=== PATIENT | male | born 1970 | race Caucasian/White ===

== ENCOUNTER 2016-11-02 09:32 | Inpatient (IN) | payer MEDICAID, OTHER ==
[~2016-11-02] VITALS: Ht 172.7 cm; Wt 101.8 kg
[2016-11-02 11:25] LABS: HEMATOCRIT 38.2 % (39.2-51.8); HEMOGLOBIN 12.6 g/dL (13.7-18.0); WHITE BLOOD COUNT 10.4 x10^3/uL (3.4-10)
[2016-11-02 11:31] LABS: ASPARTATE AMINO TRANSFERASE 28 U/L (15-37); BLOOD UREA NITROGEN 57 mg/dL (7-18)
[2016-11-02] MEDS ORDERED: ENALAPRILAT 1.25 MG/ML, 2ML IV ONE (12:00)
[2016-11-02] MEDS ORDERED: AMLODIPINE 5 MG TABLET PO ONE (12:00)
[2016-11-02] MEDS ORDERED: ENALAPRILAT 1.25 MG/ML, 2ML ONE (12:29)
[2016-11-02] MEDS ORDERED: LOVA40TA2 PO (15:16)
[2016-11-02] MEDS ORDERED: TRAZ50TA18 PO (15:17)
[2016-11-02] MEDS ORDERED: ERGO2000 PO (15:20)
[2016-11-02] MEDS ORDERED: OMEP-110 PO (15:20)
[2016-11-02] MEDS ORDERED: LISI-170 PO (15:22)
[2016-11-02] MEDS ORDERED: CALC0.25 PO (15:24)
[2016-11-02] MEDS ORDERED: AMLO10TA2 PO (15:24)
[2016-11-02] MEDS ORDERED: ASPI-496 PO (15:24)
[2016-11-02] MEDS ORDERED: CARV3.122 PO (15:25)
[2016-11-02] MEDS ORDERED: SEVE800T7 PO (15:28)
[2016-11-02] MEDS ORDERED: hydrALAzine 20 MG/ML, 1ML IVPush PRN (15:30)
[2016-11-02] MEDS ORDERED: morphine SULFATE 10 MG/ML, 1ML IVPush PRN ×2 (15:30→20:00)
[2016-11-02] MEDS ORDERED: ONDANSETRON 2MG/ML, 2ML IVPush PRN ×2 (15:30→20:00)
[2016-11-02] MEDS ORDERED: ACETAMINOPHEN 325 MG TABLET PO PRN (15:30)
[2016-11-02 15:39] VITALS: BP 147/84
[2016-11-02] MEDS: HEPARIN 5,000 UNITS/ML, 1ML SQ SCH (17:28)
[2016-11-02] MEDS: SEVELAMER 800MG TABLET PO SCH (17:28)
[2016-11-02] MEDS: NICOTINE 21 MG/24 HR PATCH.TD24 TD SCH (17:31)
[2016-11-02 18:57] VITALS: BP 144/79
[2016-11-02] MEDS: LISINOPRIL 20 MG TABLET PO SCH (20:09)
[2016-11-02] MEDS: OMEPRAZOLE 20 MG CAPSULE.DR PO SCH (20:09)
[2016-11-02] MEDS: CARVEDILOL 3.125 MG TABLET PO SCH (20:10)
[2016-11-02] MEDS: ASPIRIN 81 MG TABLET EC PO SCH (20:10)
[2016-11-02] MEDS: LOVASTATIN 40 MG TABLET PO SCH (20:10)
[2016-11-02] MEDS: TRAZODONE 50MG TABLET PO SCH (20:10)
[2016-11-02] MEDS ORDERED: SIMVASTATIN 40 MG TABLET PO SCH (21:00)
[2016-11-02] MEDS ORDERED: ATORVASTATIN 20 MG TABLET PO SCH (21:00)
[2016-11-02] MEDS ORDERED: LISINOPRIL 20 MG TABLET PO SCH (21:00)
[2016-11-03] MEDS: HEPARIN 5,000 UNITS/ML, 1ML SQ SCH ×3 (01:03→17:10)
[2016-11-03 01:36] VITALS: BP 139/80
[2016-11-03 05:08] LABS: HEMATOCRIT 35.5 % (39.2-51.8); HEMOGLOBIN 11.7 g/dL (13.7-18.0); WHITE BLOOD COUNT 9.5 x10^3/uL (3.4-10)
[2016-11-03 05:21] LABS: BLOOD UREA NITROGEN 67 mg/dL (7-18)
[2016-11-03 05:27] LABS: ASPARTATE AMINO TRANSFERASE 19 U/L (15-37); FERRITIN 201.1 ng/mL (26-388); TOTAL IRON BINDING CAPACITY 235 mcg/dL (250-450)
[2016-11-03] MEDS ORDERED: ASPIRIN 81 MG TABLET EC PO SCH (06:00)
[2016-11-03] MEDS ORDERED: METOPROLOL SUCCINATE 25 MG TAB.ER.24H PO SCH (06:00)
[2016-11-03 07:19] VITALS: BP 143/91
[2016-11-03] MEDS: OMEPRAZOLE 20 MG CAPSULE.DR PO SCH ×2 (08:38→22:13)
[2016-11-03] MEDS: CALCITRIOL 0.25 MCG CAPSULE PO SCH (08:38)
[2016-11-03] MEDS: SEVELAMER 800MG TABLET PO SCH ×3 (08:38→17:09)
[2016-11-03] MEDS: LISINOPRIL 20 MG TABLET PO SCH ×2 (08:38→21:13)
[2016-11-03] MEDS: CHOLECALCIFEROL 1,000 UNIT TABLET PO SCH (08:38)
[2016-11-03] MEDS: AMLODIPINE 5 MG TABLET PO SCH (08:39)
[2016-11-03] MEDS: ASPIRIN 81 MG TABLET EC PO SCH ×2 (08:39→21:13)
[2016-11-03] MEDS: CARVEDILOL 3.125 MG TABLET PO SCH ×2 (08:39→21:13)
[2016-11-03] MEDS ORDERED: AMLODIPINE 5 MG TABLET PO SCH (09:00)
[2016-11-03] MEDS: FERROUS SULFATE 325 MG TABLET PO SCH ×2 (12:00→17:09)
[2016-11-03 14:00] VITALS: BP 157/71
[2016-11-03] MEDS: NICOTINE 21 MG/24 HR PATCH.TD24 TD SCH (17:10)
[2016-11-03 20:00] VITALS: BP 149/85
[2016-11-03] MEDS: TRAZODONE 50MG TABLET PO SCH (21:13)
[2016-11-03] MEDS: LOVASTATIN 40 MG TABLET PO SCH (21:13)
[2016-11-04] MEDS: HEPARIN 5,000 UNITS/ML, 1ML SQ SCH ×3 (01:35→16:29)
[2016-11-04 02:00] VITALS: BP 138/84
[2016-11-04 05:11] LABS: HEMATOCRIT 38.2 % (39.2-51.8); HEMOGLOBIN 12.6 g/dL (13.7-18.0); WHITE BLOOD COUNT 8.4 x10^3/uL (3.4-10)
[2016-11-04 05:29] LABS: BLOOD UREA NITROGEN 45 mg/dL (7-18)
[2016-11-04 06:48] VITALS: BP 146/84
[2016-11-04] MEDS: OMEPRAZOLE 20 MG CAPSULE.DR PO SCH ×2 (08:13→20:16)
[2016-11-04] MEDS: CHOLECALCIFEROL 1,000 UNIT TABLET PO SCH (08:13)
[2016-11-04] MEDS: AMLODIPINE 5 MG TABLET PO SCH (08:13)
[2016-11-04] MEDS: LISINOPRIL 20 MG TABLET PO SCH ×2 (08:13→20:16)
[2016-11-04] MEDS: FERROUS SULFATE 325 MG TABLET PO SCH ×2 (08:14→16:29)
[2016-11-04] MEDS: CARVEDILOL 3.125 MG TABLET PO SCH ×2 (08:14→20:17)
[2016-11-04] MEDS: ASPIRIN 81 MG TABLET EC PO SCH ×2 (08:14→20:16)
[2016-11-04] MEDS: SEVELAMER 800MG TABLET PO SCH ×3 (08:14→16:29)
[2016-11-04] MEDS: CALCITRIOL 0.25 MCG CAPSULE PO SCH (08:14)
[2016-11-04 12:38] VITALS: BP 139/83
[2016-11-04] MEDS: NICOTINE 21 MG/24 HR PATCH.TD24 TD SCH (16:29)
[2016-11-04 20:00] VITALS: BP 143/88
[2016-11-04] MEDS: TRAZODONE 50MG TABLET PO SCH (20:16)
[2016-11-04] MEDS: LOVASTATIN 40 MG TABLET PO SCH (20:16)
[2016-11-05] MEDS: HEPARIN 5,000 UNITS/ML, 1ML SQ SCH ×3 (01:25→15:57)
[2016-11-05 02:00] VITALS: BP 147/90
[2016-11-05 05:27] LABS: HEMOGLOBIN 11.9 g/dL (13.7-18.0); WHITE BLOOD COUNT 7.8 x10^3/uL (3.4-10)
[2016-11-05 05:40] LABS: ASPARTATE AMINO TRANSFERASE 13 U/L (15-37); BLOOD UREA NITROGEN 62 mg/dL (7-18)
[2016-11-05 07:59] VITALS: BP 145/88
[2016-11-05] MEDS: OMEPRAZOLE 20 MG CAPSULE.DR PO SCH ×2 (08:27→20:56)
[2016-11-05] MEDS: CALCITRIOL 0.25 MCG CAPSULE PO SCH (08:28)
[2016-11-05] MEDS: CARVEDILOL 3.125 MG TABLET PO SCH ×2 (08:28→20:56)
[2016-11-05] MEDS: SEVELAMER 800MG TABLET PO SCH ×3 (08:28→15:57)
[2016-11-05] MEDS: FERROUS SULFATE 325 MG TABLET PO SCH ×2 (08:28→15:57)
[2016-11-05] MEDS: ASPIRIN 81 MG TABLET EC PO SCH ×2 (08:32→20:56)
[2016-11-05] MEDS: LISINOPRIL 20 MG TABLET PO SCH ×2 (09:00→20:56)
[2016-11-05] MEDS: CHOLECALCIFEROL 1,000 UNIT TABLET PO SCH (09:00)
[2016-11-05 14:16] VITALS: BP 160/114
[2016-11-05] MEDS: NICOTINE 21 MG/24 HR PATCH.TD24 TD SCH (15:57)
[2016-11-05] MEDS: AMLODIPINE 5 MG TABLET PO SCH (15:59)
[2016-11-05 20:00] VITALS: BP 150/93
[2016-11-05] MEDS: TRAZODONE 50MG TABLET PO SCH (20:56)
[2016-11-05] MEDS: LOVASTATIN 40 MG TABLET PO SCH (20:56)
[2016-11-06] MEDS: HEPARIN 5,000 UNITS/ML, 1ML SQ SCH ×3 (01:00→17:00)
[2016-11-06 02:00] VITALS: BP 130/79
[2016-11-06 06:08] LABS: HEMATOCRIT 38.1 % (39.2-51.8); HEMOGLOBIN 12.6 g/dL (13.7-18.0); WHITE BLOOD COUNT 9.1 x10^3/uL (3.4-10)
[2016-11-06 06:20] LABS: ASPARTATE AMINO TRANSFERASE 13 U/L (15-37); BLOOD UREA NITROGEN 56 mg/dL (7-18)
[2016-11-06] MEDS: FERROUS SULFATE 325 MG TABLET PO SCH ×2 (08:00→17:25)
[2016-11-06] MEDS: SEVELAMER 800MG TABLET PO SCH ×3 (08:00→17:25)
[2016-11-06 08:31] VITALS: BP 181/96
[2016-11-06] MEDS: CARVEDILOL 3.125 MG TABLET PO SCH (09:00)
[2016-11-06] MEDS: ASPIRIN 81 MG TABLET EC PO SCH (09:00)
[2016-11-06] MEDS: AMLODIPINE 5 MG TABLET PO SCH (09:00)
[2016-11-06] MEDS: OMEPRAZOLE 20 MG CAPSULE.DR PO SCH (09:00)
[2016-11-06] MEDS: LISINOPRIL 20 MG TABLET PO SCH (09:00)
[2016-11-06] MEDS: CALCITRIOL 0.25 MCG CAPSULE PO SCH (09:00)
[2016-11-06] MEDS: CHOLECALCIFEROL 1,000 UNIT TABLET PO SCH (09:00)
[2016-11-06] MEDS ORDERED: MIDAZOLAM 1 MG/ML, 2ML ONE (13:10)
[2016-11-06] MEDS ORDERED: FENTANYL PF 100 MCG/2ML ONE ×2 (13:11→15:13)
[2016-11-06] MEDS ORDERED: BUPIVACAINE/PF 0.5% ONE (13:40)
[2016-11-06] MEDS ORDERED: PROTAMINE SULFATE 10 MG/ML, 5ML ONE (13:40)
[2016-11-06] MEDS ORDERED: HEPARIN 1,000 UNITS/ML, 10ML ONE (13:40)
[2016-11-06] MEDS ORDERED: THROMBIN 5,000 UNIT VIAL TP ONE (13:40)
[2016-11-06] MEDS ORDERED: CEFAZOLIN 1,000 MG ONE (13:48)
[2016-11-06] MEDS ORDERED: ROCURONIUM 10 MG/ML ONE (13:48)
[2016-11-06] MEDS ORDERED: ONDANSETRON 2MG/ML, 2ML ONE ×2 (13:48→15:13)
[2016-11-06] MEDS ORDERED: SUCCINYLCHOLINE 20 MG/ML, 10ML ONE (13:48)
[2016-11-06] MEDS ORDERED: PROPOFOL 10 MG/ML, 20ML ONE (13:48)
[2016-11-06] MEDS ORDERED: OXYcodone 5 MG/5 ML ORAL.SOL UDC PO PRN (14:30)
[2016-11-06] MEDS ORDERED: HYDROmorphone 1 MG/ML, 1ML IV PRN (14:30)
[2016-11-06] MEDS ORDERED: ACETAMINOPHEN 325 MG TABLET PO PRN (14:30)
[2016-11-06] MEDS ORDERED: ONDANSETRON 2MG/ML, 2ML IVPush PRN (14:30)
[2016-11-06] MEDS ORDERED: LABETALOL 5MG/ML, 20ML IV PRN (14:30)
[2016-11-06] MEDS ORDERED: hydrALAzine 20 MG/ML, 1ML IV PRN (14:30)
[2016-11-06] MEDS ORDERED: ACETAMINOPHEN 650 MG/20.3 ML UDC ONE (15:13)
[2016-11-06] MEDS ORDERED: ACETAMINOPHEN 325 MG TABLET ONE (15:13)
[2016-11-06] MEDS: FENTANYL PF 100 MCG/2ML IV PRN ×2 (15:16→15:25)
[2016-11-06 15:43] VITALS: BP 136/82
[2016-11-06] MEDS: NICOTINE 21 MG/24 HR PATCH.TD24 TD SCH (17:00)
[2016-11-06 18:49] VITALS: BP 129/79
== END 2016-11-06 20:43 | disposition hospice, home (50) | DRG 673 ==
LOC: ED 10:59 → EDIP 11:48 → 4WST 13:26
PROVIDERS: ADMIT Internal Medicine; ATTEND Family Medicine
PROC: 5A1D60Z (ICD-10-PCS; principal; 2016-11-05)
PROC: 031C0ZF Bypass Left Radial Artery to Lower Arm Vein, Open Approach (ICD-10-PCS; 2016-11-06)
DX: I12.0 Hypertensive chronic kidney disease with stage 5 chronic kidney disease or end stage renal disease (principal); N18.6 End stage renal disease; N25.81 Secondary hyperparathyroidism of renal origin; E11.21 Type 2 diabetes mellitus with diabetic nephropathy; E83.39 Other disorders of phosphorus metabolism; E11.22 Type 2 diabetes mellitus with diabetic chronic kidney disease; I25.10 Atherosclerotic heart disease of native coronary artery without angina pectoris; E66.9 Obesity, unspecified; D63.1 Anemia in chronic kidney disease; K21.9 Gastro-esophageal reflux disease without esophagitis; E78.5 Hyperlipidemia, unspecified; Z99.2 Dependence on renal dialysis; Z95.1 Presence of aortocoronary bypass graft; Z87.891 Personal history of nicotine dependence; Z68.34 Body mass index [BMI] 34.0-34.9, adult
CPT/HCPCS: 36415; 80048; 80053; 80074; 82306; 82728; 83036; 83540; 83550; 83735; 83880; 83970; 84100; 84550; 85025; 86480; 93005; C8929; J0690; J1644; J2250; J2405; J2704; J2720; J3010; J3490; G0365; J0330

== ENCOUNTER 2016-11-06 22:45 | Inpatient (IN) | payer MEDICAID, OTHER ==
[~2016-11-06] VITALS: Ht 172.7 cm; Wt 101.5 kg
[~2016-11-06 22:45] MED LIST: AMLO10TA2 PO; ASPI-496 PO; CALC0.25 PO; CARV3.122 PO; ERGO2000 PO; LISI-170 PO; LOVA40TA2 PO; OMEP-110 PO; SEVE800T7 PO; TRAZ50TA18 PO
[2016-11-07] MEDS ORDERED: SODIUM CHLORIDE FLUSH 10ML SYR IVF PRN
[2016-11-07] MEDS ORDERED: POLYETHYLENE GLYCOL 17 GM PACKET PO PRN (01:00)
[2016-11-07] MEDS ORDERED: BISACODYL 10 MG SUPP PR PRN (01:00)
[2016-11-07] MEDS: SEVELAMER 800MG TABLET PO SCH ×4 (01:00→17:10)
[2016-11-07] MEDS ORDERED: ONDANSETRON 2MG/ML, 2ML IVPush PRN (01:00)
[2016-11-07 02:00] VITALS: BP 153/93
[2016-11-07] MEDS: LOVASTATIN 40 MG TABLET PO SCH ×2 (02:20→21:13)
[2016-11-07] MEDS: TRAZODONE 50MG TABLET PO SCH ×2 (02:20→21:13)
[2016-11-07] MEDS: HEPARIN 5,000 UNITS/ML, 1ML SQ SCH ×3 (02:20→17:11)
[2016-11-07 02:43] VITALS: BP 153/93
[2016-11-07 05:26] LABS: HEMATOCRIT 34.5 % (39.2-51.8); HEMOGLOBIN 11.5 g/dL (13.7-18.0); WHITE BLOOD COUNT 9.5 x10^3/uL (3.4-10)
[2016-11-07 06:23] LABS: ASPARTATE AMINO TRANSFERASE 14 U/L (15-37); BLOOD UREA NITROGEN 69 mg/dL (7-18)
[2016-11-07 06:35] VITALS: BP 138/84
[2016-11-07] MEDS: CHOLECALCIFEROL 1,000 UNIT TABLET PO SCH (08:51)
[2016-11-07] MEDS: CALCITRIOL 0.25 MCG CAPSULE PO SCH (08:51)
[2016-11-07] MEDS: AMLODIPINE 5 MG TABLET PO SCH (08:51)
[2016-11-07] MEDS: OMEPRAZOLE 20 MG CAPSULE.DR PO SCH ×2 (08:51→21:13)
[2016-11-07] MEDS: LISINOPRIL 20 MG TABLET PO SCH ×2 (08:51→21:13)
[2016-11-07] MEDS: SENNA/DOCUSATE TABLET PO SCH (08:51)
[2016-11-07] MEDS: CARVEDILOL 3.125 MG TABLET PO SCH ×2 (08:52→21:13)
[2016-11-07] MEDS: ASPIRIN 81 MG TABLET EC PO SCH ×2 (08:52→21:14)
[2016-11-07 14:38] VITALS: BP 156/90
[2016-11-07 20:50] VITALS: BP 142/74
[2016-11-07] MEDS ORDERED: OXYcodone/APAP 5/325MG TABLET PO PRN (21:00)
[2016-11-08] MEDS: HEPARIN 5,000 UNITS/ML, 1ML SQ SCH ×3 (00:50→17:19)
[2016-11-08 02:15] VITALS: BP 132/78
[2016-11-08 05:33] LABS: HEMATOCRIT 36.9 % (39.2-51.8); HEMOGLOBIN 12.2 g/dL (13.7-18.0)
[2016-11-08 05:42] LABS: BLOOD UREA NITROGEN 57 mg/dL (7-18)
[2016-11-08 05:46] LABS: ASPARTATE AMINO TRANSFERASE 15 U/L (15-37)
[2016-11-08 07:15] VITALS: BP 145/81
[2016-11-08] MEDS: OMEPRAZOLE 20 MG CAPSULE.DR PO SCH ×2 (08:35→21:15)
[2016-11-08] MEDS: CARVEDILOL 3.125 MG TABLET PO SCH ×2 (08:35→21:15)
[2016-11-08] MEDS: ASPIRIN 81 MG TABLET EC PO SCH ×2 (08:35→21:15)
[2016-11-08] MEDS: LISINOPRIL 20 MG TABLET PO SCH ×2 (08:35→21:15)
[2016-11-08] MEDS: AMLODIPINE 5 MG TABLET PO SCH (08:36)
[2016-11-08] MEDS: CHOLECALCIFEROL 1,000 UNIT TABLET PO SCH (08:36)
[2016-11-08] MEDS: SENNA/DOCUSATE TABLET PO SCH (08:36)
[2016-11-08] MEDS: SEVELAMER 800MG TABLET PO SCH ×3 (08:36→16:10)
[2016-11-08] MEDS: CALCITRIOL 0.25 MCG CAPSULE PO SCH (08:36)
[2016-11-08 09:07] LABS: HEP B SURF. AB < 3.1 mIU/mL (0.0-10.0)
[2016-11-08 13:03] VITALS: BP 149/80
[2016-11-08 18:45] VITALS: BP 140/79
[2016-11-08] MEDS: ACETAMINOPHEN 325 MG TABLET PO PRN (18:48)
[2016-11-08] MEDS: LOVASTATIN 40 MG TABLET PO SCH (21:15)
[2016-11-08] MEDS: TRAZODONE 50MG TABLET PO SCH (21:15)
[2016-11-08 21:17] VITALS: BP 148/85
[2016-11-09] MEDS: HEPARIN 5,000 UNITS/ML, 1ML SQ SCH ×3 (00:27→17:02)
[2016-11-09 02:10] VITALS: BP 154/90
[2016-11-09] MEDS: ACETAMINOPHEN 325 MG TABLET PO PRN ×2 (07:24→17:02)
[2016-11-09 07:56] VITALS: BP 154/99
[2016-11-09] MEDS: CALCITRIOL 0.25 MCG CAPSULE PO SCH (09:20)
[2016-11-09] MEDS: CARVEDILOL 3.125 MG TABLET PO SCH ×2 (09:20→20:18)
[2016-11-09] MEDS: SENNA/DOCUSATE TABLET PO SCH (09:20)
[2016-11-09] MEDS: OMEPRAZOLE 20 MG CAPSULE.DR PO SCH ×2 (09:20→20:18)
[2016-11-09] MEDS: CHOLECALCIFEROL 1,000 UNIT TABLET PO SCH (09:20)
[2016-11-09] MEDS: LISINOPRIL 20 MG TABLET PO SCH ×2 (09:20→20:18)
[2016-11-09] MEDS: AMLODIPINE 5 MG TABLET PO SCH (09:20)
[2016-11-09] MEDS: ASPIRIN 81 MG TABLET EC PO SCH ×2 (09:21→20:19)
[2016-11-09] MEDS: SEVELAMER 800MG TABLET PO SCH ×3 (09:21→17:02)
[2016-11-09 12:55] VITALS: BP 140/80
[2016-11-09 18:49] VITALS: BP 159/87
[2016-11-09] MEDS ORDERED: OXYcodone/APAP 5/325MG TABLET PO PRN ×2 (20:00→20:30)
[2016-11-09] MEDS ORDERED: BISACODYL 10 MG SUPP PR PRN (20:00)
[2016-11-09] MEDS ORDERED: ONDANSETRON 2MG/ML, 2ML IVPush PRN ×2 (20:00→20:30)
[2016-11-09] MEDS: LOVASTATIN 40 MG TABLET PO SCH (20:18)
[2016-11-09] MEDS: TRAZODONE 50MG TABLET PO SCH (20:19)
[2016-11-10 00:59] VITALS: BP 130/65
[2016-11-10] MEDS: HEPARIN 5,000 UNITS/ML, 1ML SQ SCH ×3 (01:00→17:20)
[2016-11-10] MEDS: ACETAMINOPHEN 325 MG TABLET PO PRN (04:54)
[2016-11-10 05:08] LABS: HEMATOCRIT 34.3 % (39.2-51.8); HEMOGLOBIN 11.4 g/dL (13.7-18.0); WHITE BLOOD COUNT 9.5 x10^3/uL (3.4-10)
[2016-11-10 05:21] LABS: BLOOD UREA NITROGEN 92 mg/dL (7-18)
[2016-11-10 05:26] LABS: ASPARTATE AMINO TRANSFERASE 14 U/L (15-37)
[2016-11-10] MEDS: OMEPRAZOLE 20 MG CAPSULE.DR PO SCH ×2 (07:40→21:42)
[2016-11-10] MEDS: CARVEDILOL 3.125 MG TABLET PO SCH ×2 (07:40→21:43)
[2016-11-10] MEDS: SEVELAMER 800MG TABLET PO SCH ×3 (07:40→17:21)
[2016-11-10] MEDS: CHOLECALCIFEROL 1,000 UNIT TABLET PO SCH (07:40)
[2016-11-10] MEDS: CALCITRIOL 0.25 MCG CAPSULE PO SCH (07:40)
[2016-11-10] MEDS: ASPIRIN 81 MG TABLET EC PO SCH ×2 (07:40→21:43)
[2016-11-10] MEDS: SENNA/DOCUSATE TABLET PO SCH (07:41)
[2016-11-10 07:45] VITALS: BP 136/86
[2016-11-10] MEDS: LISINOPRIL 20 MG TABLET PO SCH ×2 (07:47→21:42)
[2016-11-10] MEDS: AMLODIPINE 5 MG TABLET PO SCH (07:47)
[2016-11-10] MEDS ORDERED: SENNA/DOCUSATE TABLET PO SCH (09:00)
[2016-11-10 14:01] VITALS: BP 127/77
[2016-11-10 21:30] VITALS: BP 139/87
[2016-11-10] MEDS: LOVASTATIN 40 MG TABLET PO SCH (21:43)
[2016-11-10] MEDS: TRAZODONE 50MG TABLET PO SCH (21:43)
[2016-11-11] MEDS: ACETAMINOPHEN 325 MG TABLET PO PRN (00:02)
[2016-11-11] MEDS: HEPARIN 5,000 UNITS/ML, 1ML SQ SCH ×4 (01:00→21:00)
[2016-11-11 03:59] VITALS: BP 112/67
[2016-11-11 08:18] VITALS: BP 129/74
[2016-11-11] MEDS: CHOLECALCIFEROL 1,000 UNIT TABLET PO SCH (08:26)
[2016-11-11] MEDS: AMLODIPINE 5 MG TABLET PO SCH (08:26)
[2016-11-11] MEDS: SENNA/DOCUSATE TABLET PO SCH (08:26)
[2016-11-11] MEDS: OMEPRAZOLE 20 MG CAPSULE.DR PO SCH ×2 (08:26→21:05)
[2016-11-11] MEDS: LISINOPRIL 20 MG TABLET PO SCH ×2 (08:26→21:05)
[2016-11-11] MEDS: CALCITRIOL 0.25 MCG CAPSULE PO SCH (08:26)
[2016-11-11] MEDS: ASPIRIN 81 MG TABLET EC PO SCH ×2 (08:27→21:05)
[2016-11-11] MEDS: SEVELAMER 800MG TABLET PO SCH ×3 (08:27→15:14)
[2016-11-11] MEDS: CARVEDILOL 3.125 MG TABLET PO SCH ×2 (08:27→21:05)
[2016-11-11 14:23] VITALS: BP 125/75
[2016-11-11] MEDS: LOVASTATIN 40 MG TABLET PO SCH (21:04)
[2016-11-11] MEDS: TRAZODONE 50MG TABLET PO SCH (21:05)
[2016-11-11 21:14] VITALS: BP 135/84
[2016-11-12] MEDS: HEPARIN 5,000 UNITS/ML, 1ML SQ SCH (05:00)
[2016-11-12 08:15] VITALS: BP 133/74
[2016-11-12] MEDS: ASPIRIN 81 MG TABLET EC PO SCH (09:00)
[2016-11-12] MEDS: SENNA/DOCUSATE TABLET PO SCH (09:00)
[2016-11-12] MEDS: OMEPRAZOLE 20 MG CAPSULE.DR PO SCH (11:20)
[2016-11-12] MEDS: CARVEDILOL 3.125 MG TABLET PO SCH (11:20)
[2016-11-12] MEDS: AMLODIPINE 5 MG TABLET PO SCH (11:20)
[2016-11-12] MEDS: SEVELAMER 800MG TABLET PO SCH (11:20)
[2016-11-12] MEDS: CHOLECALCIFEROL 1,000 UNIT TABLET PO SCH (11:21)
[2016-11-12] MEDS: CALCITRIOL 0.25 MCG CAPSULE PO SCH (11:21)
[2016-11-12] MEDS: LISINOPRIL 20 MG TABLET PO SCH (11:21)
== END 2016-11-12 11:25 | disposition left against medical advice (07) | DRG 682 ==
LOC: ED 23:26 → EDIP 11-07 00:57 → 4WST 11-07 01:37 → UNDODISIN 11-12 11:25
PROVIDERS: ADMIT Hospitalist; ATTEND Hospitalist
PROC: 5A1D60Z (ICD-10-PCS; principal; 2016-11-12)
DX: I12.0 Hypertensive chronic kidney disease with stage 5 chronic kidney disease or end stage renal disease (principal); N18.6 End stage renal disease; E11.21 Type 2 diabetes mellitus with diabetic nephropathy; N25.81 Secondary hyperparathyroidism of renal origin; D63.1 Anemia in chronic kidney disease; E11.22 Type 2 diabetes mellitus with diabetic chronic kidney disease; E66.9 Obesity, unspecified; E78.5 Hyperlipidemia, unspecified; E83.39 Other disorders of phosphorus metabolism; E87.5 Hyperkalemia; F17.210 Nicotine dependence, cigarettes, uncomplicated; I25.10 Atherosclerotic heart disease of native coronary artery without angina pectoris; K21.9 Gastro-esophageal reflux disease without esophagitis; Z59.0 Homelessness; Z95.1 Presence of aortocoronary bypass graft; Z99.2 Dependence on renal dialysis; Z68.34 Body mass index [BMI] 34.0-34.9, adult
CPT/HCPCS: 36415; 80053; 84100; 85025; 86704; 86706; 87340; 99285; J1644